=== PATIENT | male | born 1990 | race Caucasian/White ===

== ENCOUNTER 2018-03-08 14:21 | Emergency (ER) | payer OTHER ==
[~2018-03-08] VITALS: Ht 180.3 cm; Wt 77.1 kg
[2018-03-08 14:21] VITALS: BP_SYST 140
--- NOTE | 2018-03-08 14:21 | NUR ---
BROUGHT BACK TO BED #5 AND TRIAGED. REPORT GIVEN TO HERIBERTO
--- NOTE | 2018-03-08 14:25 | NUR ---
Pt presents to ER for acute, constant, gradually worsening, pain and swelling to the left hand x 5 days. Pt reports taking Keflex with minimal improvement, pt states his doctor attempted to needle aspirate the site two days ago with no contents aspirated. Otherwise, pt denies any fever, chills, dizziness, motor or sensory deficits, or other symptoms.
--- NOTE | 2018-03-08 14:30 | NUR ---
Alejandra Juárez [employer] at bedside examining pt.
[2018-03-08 15:25] LABS: BASOPHILS # (AUTO) 0.1 K/uL (0.0-0.2); BASOPHILS % (AUTO) 0.6 % (0.0-2.0); EOSINOPHILS # (AUTO) 0.4 K/uL (0.0-0.4); EOSINOPHILS % (AUTO) 3.6 % (0.0-4.0); HEMATOCRIT 45.5 % (36-54); HEMOGLOBIN 15.1 g/dL (14.0-18.0); LYMPHOCYTES % (AUTO) 19.7 % (20.5-51.5); MEAN CORPUSCULAR HEMOGLOBIN 29 pg (27-31); MEAN CORPUSCULAR HGB CONC 33 % (32-36); MEAN CORPUSCULAR VOLUME 88 fL (79.0-98.0); MONOCYTES # (AUTO) 0.9 K/uL (0.0-1.0); MONOCYTES % (AUTO) 8.8 % (1.7-9.3); NEUTROPHILS # (AUTO) 6.7 K/uL (1.8-7.7); NEUTROPHILS % (AUTO) 67.3 % (40.0-70.0); PLATELET COUNT (AUTO) 277 K/uL (130-430); RED BLOOD CELL COUNT(AUTO) 5.16 MIL/uL (4.2-6.2); RED CELL DISTRIBUTION WIDTH 12.2 % (9.0-15.0); WHITE BLOOD COUNT (AUTO) 10.1 K/uL (4.8-10.8)
[2018-03-08] MEDS ORDERED: VANCOMYCIN HCL 1,000 MG in NS 250 ML IV ONE (15:30)
--- NOTE | 2018-03-08 15:30 | NUR ---
Pt resting on gurney, no signs of distress, will continue to monitor.
[2018-03-08] MEDS ORDERED: VANCOMYCIN HCL 1000 MG/VIAL IV ONE (15:48)
[2018-03-08 16:04] LABS: CALCIUM 9.6 mg/dL (8.4-11.0); CREATININE 0.97 mg/dL (0.55-1.30); POTASSIUM 3.9 mmol/L (3.5-5.1)
[2018-03-08 16:11] LABS: ALBUMIN 4.1 g/dL (3.4-4.8); TOTAL BILIRUBIN 0.7 mg/dL (0.0-1.0)
--- NOTE | 2018-03-08 16:30 | NUR ---
Pt resting on gurney, no signs of distress, will continue to monitor.
--- NOTE | 2018-03-08 17:40 | NUR ---
Alejandra Juárez [employer]IOR LIN[employer] ENGINEER at bedside speaking with pt clarifying discharge instructions.
[2018-03-08 17:45] VITALS: BP_SYST 140
--- NOTE | 2018-03-08 17:45 | NUR ---
Patient given written and verbal discharge instructions and verbalizes understanding. ER MD discussed with patient the results and treatment provided. Patient in stable condition. ID arm band removed. IV catheter removed intact and dressing applied, no active bleeding. Rx of Motrin & Bactrim given. Patient educated on pain management and to follow up with PMD. Pain Scale 3/10. Opportunity for questions provided and answered. Medication side effect fact sheet provided.
== END 2018-03-08 17:45 | disposition home or self-care (01) ==
LOC: SED 14:21
DX: L02.512 Cutaneous abscess of left hand (principal); F17.210 Nicotine dependence, cigarettes, uncomplicated; R03.0 Elevated blood-pressure reading, without diagnosis of hypertension; Z71.6 Tobacco abuse counseling
CPT/HCPCS: 36415; 73130; 80053; 85025; 87040; 96365; 96366; 99284; J3370